=== PATIENT | female | born 1960 | race Caucasian/White ===

== ENCOUNTER 2018-12-20 09:09 | Day surgery (SDC) | payer OTHER, SELFPAY ==
[2018-12-20 09:31] VITALS: BP 131/55; PULSE 84; RESP 18; TEMP 36.8; O2SAT 100; BMI 40.1
--- NOTE | 2018-12-20 10:10 | RAD_ITS ---
PROCEDURE: Caudal block. DATE OF EXAMINATION: December 20, 2018. INDICATION: Female, 58 years old. Chronic low back pain. FLUOROSCOPY TIME (if supplied): (0:09) minutes/seconds. 2 coned-down views were obtained intraoperatively. Intraoperative imaging provided for caudal block. The needle is seen along the posterior midportion of the sacrum. RAD/Fluor Guidance for Spine Inj IMPRESSION: Intraoperative imaging provided for caudal block. Electronically Signed: Mauri Schaffer MD at 11:13 EST , Service support ,
[2018-12-20] MEDS: Bupivacaine 0.25% 30 ML Vial (10:15)
[2018-12-20] MEDS: MethylPREDNISolone Acetate 80 MG/ML Vial (10:15)
[2018-12-20 10:20] VITALS: BP 131/55; BP 132/75; PULSE 88; RESP 16; TEMP 36.2; O2SAT 96
[2018-12-20 10:25] VITALS: BP 131/55; BP 144/88; PULSE 93; RESP 16; O2SAT 94
[2018-12-20 10:30] VITALS: BP 131/55; BP 150/84; PULSE 88; RESP 16; O2SAT 97
[2018-12-20 10:35] VITALS: BP 123/63; BP 131/55; PULSE 84; RESP 16; TEMP 36.4; O2SAT 94
[2018-12-20 10:48] VITALS: BP 131/55
--- NOTE | 2018-12-20 11:23 | OP.PCM_ITS ---
Problem List (1) Degeneration of intervertebral disc of lumbosacral region Status: Chronic (2) Radiculopathy of lumbosacral region Status: Chronic Report of Operation Date of Procedure: 12/20/18 Pre-Operative Diagnosis: Lumbosacral radiculopathy, lumbosacral degenerative disc disease, lumbosacral spinal stenosis Post-Operative Diagnosis: Lumbosacral radiculopathy, lumbosacral degenerative disc disease, lumbosacral spinal stenosis Surgery/Procedure Performed:: Diagnostic/therapeutic caudal epidural steroid injection Description of Surgical Findings:: PROCEDURE: Diagnostic/therapeutic caudal epidural steroid injection PREOPERATIVE DIAGNOSIS: Lumbosacral radiculopathy, lumbosacral degenerative disc disease, lumbosacral spinal stenosis POSTOPERATIVE DIAGNOSIS: Lumbosacral radiculopathy, lumbosacral degenerative disc disease, lumbosacral spinal stenosis ANESTHESIA: MAC COMPLICATIONS: None BLOOD LOSS: Minimal PROCEDURE IN DETAIL: History and physical today was reviewed. Risks and benefits of the procedure were explained. The patient understood, agreed to our procedure, and informed consent was obtained. IV inserted per routine protocol. The patient was taken to the operating room, placed in a prone position with a pillow positioned underneath the abdomen. The lower back and tailbone area was prepped and draped in a sterile fashion using iodine x3 under fluoroscopy guidance on the lateral view the caudal space was identified the skin and subcutaneous tissue anesthetized approximately 3 cc of 1% lidocaine using a 25-gauge regular needle under direct visualization fluoroscopy in a lateral view using a 22-gauge 3-1/2 inch spinal needle the needle was advanced via the skin through the sacral hiatus tip of the needle pas sed through the sacrococcygeal ligament advanced approximately S4 area after negative aspiration for blood or CSF a total of 3 cc of contrast were injected to confirm correct placement of the needle as well as cephalad spread the spread was followed to approximately L5 area after confirmation of AP as well as lateral view and repeated negative aspiration a total of 15 cc of preservative- free 0.125% Marcaine with 80 mg of Depo-Medrol were injected easily. The needles were then removed intact. The patient experienced no signs or symptoms intrathecal, intravascular injection. The patient experienced no paraesthesia. The procedure was completed without any apparent difficult, any complication. The patient appeared to tolerate well. ASSESSMENT AND PLAN: This is a 58-year-old female with lumbosacral radiculopathy lumbosacral degenerative disc disease lumbosacral spinal stenosis status post diagnostic/therapeutic caudal epidural steroid injection patient would continue her current medications the patient will follow in approximately 2 weeks for possible repeat of the procedure if indicated.
== END 2018-12-20 11:09 | disposition home or self-care (01) ==
LOC: SDC 09:10 → AC 09:12
PROVIDERS: Family Provider Internal Medicine; PCP Internal Medicine; Referring Provider Anesthesiology Pain Medicine; Visit Provider Anesthesiology Pain Medicine
PROC: 3E0S3BZ Introduction of Anesthetic Agent into Epidural Space, Percutaneous Approach (ICD-10-PCS; CPT 62282; principal; 2018-12-20 10:05)
DX: M51.17 Intervertebral disc disorders with radiculopathy, lumbosacral region (principal); M48.07 Spinal stenosis, lumbosacral region; M47.817 Spondylosis without myelopathy or radiculopathy, lumbosacral region; M46.96 Unspecified inflammatory spondylopathy, lumbar region; M79.7 Fibromyalgia; J45.909 Unspecified asthma, uncomplicated; G47.33 Obstructive sleep apnea (adult) (pediatric); G25.81 Restless legs syndrome; K21.9 Gastro-esophageal reflux disease without esophagitis; M85.80 Other specified disorders of bone density and structure, unspecified site; M19.90 Unspecified osteoarthritis, unspecified site; Z87.19 Personal history of other diseases of the digestive system; Z86.2 Personal history of diseases of the blood and blood-forming organs and certain disorders involving the immune mechanism; Z78.0 Asymptomatic menopausal state; Z96.612 Presence of left artificial shoulder joint; Z96.611 Presence of right artificial shoulder joint; Z79.52 Long term (current) use of systemic steroids; Z79.891 Long term (current) use of opiate analgesic; Z79.899 Other long term (current) drug therapy
CPT/HCPCS: 01992; 62323; 64483; 77003; J7120; J3490

== ENCOUNTER 2019-01-17 07:31 | Day surgery (SDC) | payer OTHER, SELFPAY ==
[2019-01-17] VITALS (8 sets, daily range): BP systolic 107–150; BP diastolic 65–86; PULSE 76–95; RESP 14–16; TEMP 36.1–36.7; O2SAT 93–99; BMI 40.2
--- NOTE | 2019-01-17 08:17 | RAD_ITS ---
STUDY: X-RAY - LUMBAR SPINE REASON FOR EXAM: Female, 58 years old. Transforaminal block, right. TECHNIQUE: 2 frontal fluoroscopic images of the lumbar spine were obtained intraoperatively by the surgeon. COMPARISON: None FINDINGS: Images depict needle placement confirmed on the left at L4-L5 and L5-S1 with injection of contrast. No significant lumbar spondylosis is apparent. RAD/Lumbar Spine 2 or 3 Views IMPRESSION: Transforaminal block. Correlate with operative report. Electronically Signed: Dillon Feliciano MD at 17:51 EST Tel , Service support ,
[2019-01-17] MEDS: MethylPREDNISolone Acetate 80 MG/ML Vial (08:26)
[2019-01-17] MEDS: Bupivacaine 0.25% 30 ML Vial (08:26)
--- NOTE | 2019-01-17 09:02 | OP.PCM_ITS ---
Problem List (1) Degeneration of intervertebral disc of lumbosacral region Status: Chronic (2) Radiculopathy of lumbosacral region Status: Chronic Report of Operation Date of Procedure: 01/17/19 Pre-Operative Diagnosis: Lumbosacral radiculopathy, lumbosacral degenerative disc disease, lumbosacral spinal stenosis Post-Operative Diagnosis: Lumbosacral radiculopathy, lumbosacral degenerative disc disease, lumbosacral spinal stenosis Surgery/Procedure Performed:: Right sided lumbar transforaminal epidural steroid injection L4-5, L5-S1 Description of Surgical Findings:: PROCEDURE: Right-sided lumbar transforaminal epidural steroid injection L4-5, L5-S1 PREOPERATIVE DIAGNOSIS: Lumbosacral radiculopathy, lumbosacral degenerative disc disease, lumbosacral spinal stenosis POSTOPERATIVE DIAGNOSIS: Lumbosacral radiculopathy, lumbosacral degenerative disc disease, lumbosacral spinal stenosis ANESTHESIA: MAC COMPLICATIONS: None BLOOD LOSS: Minimal PROCEDURE IN DETAIL: History and physical today was reviewed. Risks and benefits of the procedure were explained. The patient understood, agreed to our procedure, and informed consent was obtained. IV inserted per routine protocol. The patient was taken to the operating room, placed in a prone position with a pillow positioned underneath the abdomen. The right side of the lower back was prepped and draped in a sterile fashion using iodine x3 under fluoroscopy guidance oblique view the L4 through S1 vertebral bodies were visualized the skin and subcutaneous tissue and size approximately 5 cc of 1% lidocaine using a 25-gauge regular needle under direct visualization fluoroscopy at approximately 35 degrees angle starting on the right L4 ending on the right L5 using a 22-gauge 5 inch spinal needle the needle was advanced via the skin the tip of the needle was maneuvered and directed towards the inferior and medial gutter of the transverse process at the superiormost aspect of the neuroforamen once the tip of the needle was at the vicinity of the foramen after negative aspiration for blood or CSF a total of 3 cc of contrast were injected in divided doses between both levels to confirm correct placement of the needle as well as medial spread the confirmation was obtained on AP as well as lateral view after repeated negative aspiration and confirmation a total of 6 cc of pr eservative-free 0.25% Marcaine with 80 mg of Depo-Medrol were injected in divided doses between both levels, the needles were then removed intact. The patient experienced no signs or symptoms intrathecal, intravascular injection. The patient experienced no paraesthesia. The procedure was completed without any apparent difficult, any complication. The patient appeared to tolerate well. ASSESSMENT AND PLAN: This is a 58-year-old female with lumbosacral radiculopathy, lumbosacral degenerative disc disease, lumbosacral spinal stenosis status post right-sided lumbar transforaminal epidural steroid injection L4-5, L5-S1. The patient will continue her current medications. The patient will follow in approximately 2 weeks for reevaluation.
== END 2019-01-17 09:46 | disposition home or self-care (01) ==
LOC: SDC 07:32 → AC 07:33
PROVIDERS: Family Provider Internal Medicine; PCP Internal Medicine; Referring Provider Anesthesiology Pain Medicine; Visit Provider Anesthesiology Pain Medicine
PROC: 3E0S3BZ Introduction of Anesthetic Agent into Epidural Space, Percutaneous Approach (ICD-10-PCS; CPT 64483; principal; 2019-01-17 08:25)
DX: M51.17 Intervertebral disc disorders with radiculopathy, lumbosacral region (principal); M48.07 Spinal stenosis, lumbosacral region; K21.9 Gastro-esophageal reflux disease without esophagitis; Z79.899 Other long term (current) drug therapy; J45.909 Unspecified asthma, uncomplicated; G47.33 Obstructive sleep apnea (adult) (pediatric); K44.9 Diaphragmatic hernia without obstruction or gangrene; M19.90 Unspecified osteoarthritis, unspecified site; M79.7 Fibromyalgia; Z79.891 Long term (current) use of opiate analgesic
CPT/HCPCS: 64483; 64484; 72100; J7120

== ENCOUNTER 2019-05-02 07:18 | Day surgery (SDC) | payer OTHER, SELFPAY ==
[2019-01-17 07:55] VITALS: BMI 40.2
[2019-05-02 07:32] VITALS: BP 135/71; PULSE 64; RESP 16; TEMP 36.2; O2SAT 96; BMI 39.6
[2019-05-02] MEDS: Bupivacaine 0.25% 30 ML Vial (08:39)
[2019-05-02] MEDS: MethylPREDNISolone Acetate 80 MG/ML Vial (08:40)
--- NOTE | 2019-05-02 08:40 | RAD_ITS ---
PROCEDURE: Right L4 S1 transforaminal block. DATE OF EXAMINATION: May 02, 2019. INDICATION: Female, 59 years old. Low back pain. FLUOROSCOPY TIME (if supplied): (0:26) minutes/seconds. 3 images were obtained. Intraoperative imaging provided for right L4 S1 transforaminal block. RAD/Lumbar Spine 2 or 3 Views IMPRESSION: Fluoroscopic imaging provided for right L4 S1 transforaminal block. Electronically Signed: Mauri Schaffer, at 11:06 EDT , Service support ,
[2019-05-02 08:50] VITALS: BP 122/96; BP 135/71; PULSE 74; RESP 16; TEMP 36.4; O2SAT 99
[2019-05-02 08:55] VITALS: BP 131/87; BP 135/71; PULSE 72; RESP 16; O2SAT 95
[2019-05-02 09:00] VITALS: BP 135/71; BP 136/81; PULSE 72; RESP 16; O2SAT 95
[2019-05-02 09:05] VITALS: BP 135/71; BP 143/92; PULSE 71; RESP 16; TEMP 36.2; O2SAT 98
[2019-05-02 09:39] VITALS: BP 135/71
--- NOTE | 2019-05-02 12:11 | PCM.OPRPT ---
Problem List (1) Degeneration of intervertebral disc of lumbosacral region Status: Chronic (2) Radiculopathy of lumbosacral region Status: Chronic Report of Operation Date of Procedure: 05/02/19 Pre-Operative Diagnosis: Lumbosacral radiculopathy, lumbosacral degenerative disc disease Post-Operative Diagnosis: Lumbosacral radiculopathy, lumbosacral degenerative disc disease Surgery/Procedure Performed:: Right-sided lumbar transforaminal epidural steroid injection L4-5, L5-S1 Description of Surgical Findings:: PROCEDURE: Right-sided lumbar transforaminal epidural steroid injection L4-5, L5-S1 PREOPERATIVE DIAGNOSIS: Lumbosacral radiculopathy, lumbosacral degenerative disc disease, lumbosacral spinal stenosis POSTOPERATIVE DIAGNOSIS: Lumbosacral radiculopathy, lumbosacral degenerative disc disease, lumbosacral spinal stenosis ANESTHESIA: MAC COMPLICATIONS: None BLOOD LOSS: Minimal PROCEDURE IN DETAIL: History and physical today was reviewed. Risks and benefits of the procedure were explained. The patient understood, agreed to our procedure, and informed consent was obtained. IV inserted per routine protocol. The patient was taken to the operating room, placed in a prone position with a pillow positioned underneath the abdomen. The right side of the lower back was prepped and draped in a sterile fashion using iodine x3 under fluoroscopy guidance oblique view the L4 through S1 vertebral bodies were visualized the skin and subcutaneous tissue and size approximately 5 cc of 1% lidocaine using a 25-gauge regular needle under direct visualization fluoroscopy at approximately 35 degrees angle starting on the right L4 ending on the right L5 using a 22-gauge 5 inch spinal needle the needle was advanced via the skin the tip of the needle was maneuvered and directed towards the inferior and medial gutter of the transverse process at the superiormost aspect of the neuroforamen once the tip of the needle was at the vicinity of the foramen after negative aspiration for blood or CSF a total of 3 cc of contrast were injected in divided doses between both levels to confirm correct placement of the needle as well as medial spread the confirmation was obtained on AP as well as lateral view after repeated negative aspiration and confirmation a total of 6 cc of preservative-free 0.25% Marcaine with 80 mg of Depo-Medrol were injected in divided doses between both levels, the needles were then removed intact. The patient experienced no signs or symptoms intrathecal, intravascular injection. The patient experienced no paraesthesia. The procedure was completed without any apparent difficult, any complication. The patient appeared to tolerate well. ASSESSMENT AND PLAN: This is a 58-year-old female with lumbosacral radiculopathy, lumbosacral degenerative disc disease, lumbosacral spinal stenosis status post right-sided lumbar transforaminal epidural steroid injection L4-5, L5-S1. The patient will continue her current medications. The patient will follow in approximately 2 weeks for reevaluation.
== END 2019-05-02 09:40 | disposition home or self-care (01) ==
LOC: SDC 07:20 → AC 07:21
PROVIDERS: Family Provider Internal Medicine; PCP Internal Medicine; Referring Provider Anesthesiology Pain Medicine; Visit Provider Anesthesiology Pain Medicine
PROC: 3E0S3BZ Introduction of Anesthetic Agent into Epidural Space, Percutaneous Approach (ICD-10-PCS; CPT 64483; principal; 2019-05-02 08:35)
DX: M47.27 Other spondylosis with radiculopathy, lumbosacral region (principal); M51.17 Intervertebral disc disorders with radiculopathy, lumbosacral region; M48.07 Spinal stenosis, lumbosacral region; M46.96 Unspecified inflammatory spondylopathy, lumbar region; M79.7 Fibromyalgia; J45.909 Unspecified asthma, uncomplicated; G47.33 Obstructive sleep apnea (adult) (pediatric); M85.80 Other specified disorders of bone density and structure, unspecified site; M19.90 Unspecified osteoarthritis, unspecified site; K44.9 Diaphragmatic hernia without obstruction or gangrene; K21.9 Gastro-esophageal reflux disease without esophagitis; Z87.19 Personal history of other diseases of the digestive system; Z86.2 Personal history of diseases of the blood and blood-forming organs and certain disorders involving the immune mechanism; Z78.0 Asymptomatic menopausal state; Z79.891 Long term (current) use of opiate analgesic; Z79.899 Other long term (current) drug therapy
CPT/HCPCS: 64483; 64484; 72100; J7120

== ENCOUNTER → 2019-10-27 11:43 | Outpatient (CLI) | payer OTHER, SELFPAY ==
[2019-10-24 15:09] VITALS: BMI 39.6
--- NOTE | 2019-10-27 11:46 | VDLE_ITS ---
Reason For Study: RLE pain RIGHT GSV is normal. CFV is compressible, spontaneous, phasic, competent and demonstrates normal augmentation. FV is compressible, spontaneous, phasic, competent and demonstrates normal augmentation. POP V is compressible, spontaneous, phasic, competent and demonstrates normal augmentation. T/P Trunk is compressible. PTV is compressible. RT PerV is compressible. Procedure Exam performed in department. The exam was diagnostic. A preliminary report was called and/or faxed to Dr. Anderson. Interpretation Summary There is no evidence of right lower extremity deep vein thrombosis. Right great saphenous vein appears patent and compressible segmentally. Ordering Physician: Sebastian Anderson Performed By: Stan Nicholas RVT
== END ==
PROVIDERS: Family Provider Internal Medicine; PCP Internal Medicine; Referring Provider Orthopaedic Surgery Orthopaedic Surgery of the Spine; Visit Provider Orthopaedic Surgery Orthopaedic Surgery of the Spine
DX: M79.661 Pain in right lower leg (principal); Z98.890 Other specified postprocedural states
CPT/HCPCS: 93971

== ENCOUNTER → 2019-10-31 09:24 | Outpatient (CLI) | payer OTHER, SELFPAY ==
[2019-10-24 15:09] VITALS: BMI 39.6
--- NOTE | 2019-10-31 09:41 | BI_ITS ---
MAMMOGRAPHY - UNILATERAL DIAGNOSTIC: LEFT BREAST REASON FOR EXAM: Female, 59 years old. Abnormal screening mammogram. PERTINENT HISTORY: Non-contributory. TECHNIQUE: Compression magnification spot views of the left breast in the mediolateral oblique and craniocaudad views were obtained. CAD: Full Field Digital Mammography with Computer Added Detection was performed. COMPARISON: Comparison is made with prior outside mammogram dated October 19, 2019. FINDINGS: Breast Composition: There are scattered areas of fibroglandular density. There is a persistent 4.6 mm well-defined nodule in the inferior lateral deep portion of the left breast. Correlation with ultrasound is recommended. No other significant abnormalities are identified. BI/DIAG MAMM W/CAD, UNILAT IMPRESSION: Stable appearance of the 4.6 mm well-defined nodule in the inferior lateral deep portion of the left breast as described. Correlation with ultrasound is recommended. ASSESSMENT CATEGORY: BIRADS Category 0: Incomplete. Need additional imaging evaluation. A letter regarding these results will be sent to the patient by the facility within 30 days. Approximately 10% of breast cancers are not detected by mammography. A normal mammogram should not delay biopsy of a clinically suspicious abnormality. Electronically Signed: Mauri Schaffer, at 11:06 EST , Service support ,
--- NOTE | 2019-10-31 09:41 | US_ITS ---
STUDY: ULTRASOUND BREAST - LEFT REASON FOR EXAM: Female, 59 years old. Abnormal screening mammogram. TECHNIQUE: Axial and longitudinal images of the LEFT breast were performed with a high resolution ultrasound transducer. # OF IMAGES: 32 COMPARISON: Comparison is made with prior mammogram dated October 31, 2019. FINDINGS: LEFT Breast: The mammographic abnormality corresponds to a 3 mm x 3 mm x 1 mm cyst at the 4:00 position of the breast at 2 cm from the nipple. There is also evidence of dilated ducts in the lower outer quadrant of the breast. US/Breast Limited Unilateral IMPRESSION: The mammographic abnormality corresponds to a 3 mm x 3 mm x 1 mm cyst at the 4:00 position of the breast at 2 cm from the nipple. ASSESSMENT CATEGORY: BIRADS Category 2: Benign. A letter regarding these results will be sent to the patient by the facility within 30 days. Electronically Signed: Mauri Schaffer, at 15:09 EST , Service support ,
== END ==
PROVIDERS: Family Provider Internal Medicine; PCP Internal Medicine; Referring Provider Obstetrics & Gynecology; Visit Provider Obstetrics & Gynecology
DX: R92.8 Other abnormal and inconclusive findings on diagnostic imaging of breast (principal)
CPT/HCPCS: 76642; 77065

== ENCOUNTER → 2019-11-22 15:18 | Outpatient (CLI) | payer OTHER, SELFPAY ==
[2019-10-24 15:09] VITALS: BMI 39.6
== END ==
PROVIDERS: Family Provider Internal Medicine; PCP Internal Medicine; Referring Provider Otolaryngology Otolaryngology/Facial Plastic Surgery; Visit Provider Otolaryngology Otolaryngology/Facial Plastic Surgery
DX: J32.9 Chronic sinusitis, unspecified (principal)
CPT/HCPCS: 87070; 87077; 87186; 87205

== ENCOUNTER → 2019-12-07 16:25 | Outpatient (CLI) | payer OTHER, SELFPAY ==
[2019-10-24 15:09] VITALS: BMI 39.6
== END ==
PROVIDERS: PCP Internal Medicine; Referring Provider Otolaryngology Otolaryngology/Facial Plastic Surgery; Visit Provider Otolaryngology Otolaryngology/Facial Plastic Surgery
DX: J32.9 Chronic sinusitis, unspecified (principal)
CPT/HCPCS: 87070; 87205

== ENCOUNTER → 2020-05-03 08:59 | Outpatient (CLI) | payer OTHER, SELFPAY ==
[2019-10-24 15:09] VITALS: BMI 39.6
--- NOTE | 2020-05-03 09:01 | US_ITS ---
STUDY: ULTRASOUND BREAST - LEFT REASON FOR EXAM: Female, 60 years old. Abnormal screening mammogram. TECHNIQUE: Axial and longitudinal images of the LEFT breast were performed with a high resolution ultrasound transducer. # OF IMAGES: 42 COMPARISON: Comparison is made with prior mammogram done earlier today as well as prior ultrasound the left breast dated October 31, 2019. FINDINGS: LEFT Breast: The lower outer aspect of the left breast was examined by ultrasound. No sonographic abnormality is seen. Prior ultrasound demonstrated a 3 mm x 3 mm x 1 mm cyst at the 4:00 position of the breast at 2 cm from nipple. US/Breast Limited Unilateral IMPRESSION: No sonographic abnormality is seen at this time. Routine annual mammographic follow-up is recommended. ASSESSMENT CATEGORY: BIRADS Category 2: Benign. A letter regarding these results will be sent to the patient by the facility within 30 days. Electronically Signed: Mauri Schaffer, at 12:30 EDT , Service support ,
--- NOTE | 2020-05-03 09:01 | BI_ITS ---
MAMMOGRAPHY - UNILATERAL DIAGNOSTIC: LEFT BREAST REASON FOR EXAM: Female, 60 years old. Six-month follow-up for left breast nodule. PERTINENT HISTORY: Non-contributory. TECHNIQUE: Digital unilateral breast ivana (3D mammographic acquisition) in the CC and MLO projections. 2-D mediolateral oblique (MLO) and craniocaudad (CC) views of both breasts were obtained. CAD: Full Field Digital Mammography with Computer Added Detection was performed. COMPARISON: Comparison is made with prior mammogram dated October 31, 2019. FINDINGS: Breast Composition: The breasts are almost entirely fatty. There are no dominant masses or suspicious calcifications. Stable 4.3 mm well-defined nodule in the central slightly lateral portion of the left breast. Stable scattered calcifications. No other significant abnormalities are identified. There has been no significant change since the prior study. BI/DIAG MAMM W/CAD, UNILAT IMPRESSION: Stable unilateral diagnostic mammogram. One year follow-up mammogram recommended. (A) ASSESSMENT CATEGORY: BIRADS Category 2: Benign. A letter regarding these results will be sent to the patient by the facility within 30 days. Approximately 10% of breast cancers are not detected by mammography. A normal mammogram should not delay biopsy of a clinically suspicious abnormality. Electronically Signed: Mauri Schaffer, at 10:18 EDT , Service support ,
== END ==
PROVIDERS: Family Provider Internal Medicine; PCP Internal Medicine; Referring Provider Obstetrics & Gynecology; Visit Provider Obstetrics & Gynecology
DX: R92.8 Other abnormal and inconclusive findings on diagnostic imaging of breast (principal)
CPT/HCPCS: 76642; 77061; 77065; G0279

== ENCOUNTER → 2020-05-18 11:52 | Outpatient (CLI) | payer OTHER, SELFPAY ==
[2019-10-24 15:09] VITALS: BMI 39.6
[2020-05-18 12:03] LABS: Hematocrit 43.5 % (37-47); Hemoglobin 14.2 g/dL (12.0-15.0); Mean Corp Hgb Conc 32.6 g/dL (32-36); Mean Corpuscular Hgb 30.1 pg (27.0-32.0); Mean Corpuscular Volume 92.4 fL (81-99); Mean Platelet Vol. 11.5 fl (6.2-12.0); Platelet Count 222 K/mm3 (150-450); RBC Distribution Width CV 13.1 % (11.6-14.6); RBC Distribution Width SD 44.4 fl (35.1-43.9); Red Blood Count 4.71 M/mm3 (4.2-5.4)
[2020-05-18 12:17] LABS: Anion Gap 7 (5-15); BUN 16 mg/dL (7-18); BUN/Creat Ratio 16.1 RATIO (10-20); Calcium,Total 8.4 mg/dL (8.5-10.1); Chloride 108 mmol/L (98-107); Creatinine, Serum 0.99 mg/dL (0.55-1.02); EST Glomerular Filtration Rate 60 mL/min (>60); Est Glom Filt Rate - Afr Amer 73 mL/min (>60); Glucose 136 mg/dL (74-106); Potassium 3.6 mmol/L (3.5-5.1); Sodium Level 140 mmol/L (136-145)
[2020-05-18 12:24] LABS: Hemoglobin A1c 5.7 % (3.8-5.6)
== END ==
PROVIDERS: PCP Internal Medicine; Visit Provider Anesthesiology
DX: Z01.818 Encounter for other preprocedural examination (principal)
CPT/HCPCS: 36415; 80048; 83036; 85027; 93005

== ENCOUNTER 2020-05-21 07:40 | Day surgery (SDC) | payer OTHER, SELFPAY ==
[2019-10-24 15:09] VITALS: BMI 39.6
[2020-05-21] VITALS (9 sets, daily range): BP systolic 113–133; BP diastolic 66–110; PULSE 62–84; RESP 16; TEMP 36.1–36.9; O2SAT 92–99; BMI 36.2
--- NOTE | 2020-05-21 07:50 | EKG12_ITS ---
Test Reason : PRE-OP Blood Pressure : / mmHG Vent. Rate : 058 BPM Atrial Rate : 058 BPM P-R Int : 150 ms QRS Dur : 084 ms QT Int : 420 ms P-R-T Axes : 044 004 036 degrees QTc Int : 412 ms Sinus bradycardia Otherwise normal ECG Confirmed by SIMÓN RUSSO, SILVER ([id number]), non linear editor CARLITOS GOLD ([id number]) on 05/23/2020 10:46:16 AM Referred By: Geremias Purdy Confirmed By:SILVER GR MD
[2020-05-21] MEDS: Lactated Ringers 1,000 ML 100 ML IV (08:23)
[2020-05-21 08:36] LABS: Bedside Glucose 89 mg/dL (70-110)
--- NOTE | 2020-05-21 08:43 | PCM.DC ---
You will use the following diet at home:: Regular Discharge Activity: Return to Normal Activity Additional Activity Instructions:: Avoid the CPAP for 3 nights Allergies/Adverse Reactions: Allergies promethazine [From Phenergan] Allergy (Mild, Verified 05/15/20 14:57) Other chemical sensitivies Allergy (Mild, Uncoded 05/15/20 14:57) Other outdoor allergies Allergy (Mild, Uncoded 05/15/20 14:57) Other Medications to take at Discharge albuterol sulfate 90 mcg/actuation aerosol inhaler 1 puff INHALATION Q6H PRN 07/21/18 esomeprazole magnesium 40 mg capsule,delayed release 40 mg PO DAILY 07/21/18 mometasone-formoterol HFA 200 mcg-5 mcg/actuation aerosol inhaler 2 puff INHALATION BID 07/21/18 montelukast 10 mg tablet 10 mg PO QPM 07/21/18 raloxifene 60 mg tablet 60 mg PO DAILY 07/21/18 metFORMIN (XR) [Glucophage Xr] 1,000 mg PO DAILY 05/02/19 Cholecalciferol (Vitamin D3) [Vitamin D3] 5,000 unit PO DAILY 05/15/20 Magnesium Oxide [Magnesium] 500 mg PO DAILY 05/15/20 Vit C/E/Zinc/Lutein/Zeaxanthin [[employer] Eye Health Gummies] 1 ea PO DAILY 05/15/20 Primary Care Physician: Keyonna Kauffman MD [Primary Care Provider] - Test Results: Test results from this visit will be discussed in further detail at your follow-up appointment, if applicable.
--- NOTE | 2020-05-21 09:00 | PCM.OPRPT ---
Report of Operation Date of Procedure: 05/21/20 Pre-Operative Diagnosis: nasal airway obstruction. vestibular stenosis Post-Operative Diagnosis: same Surgery/Procedure Performed:: bilateral lateral implantation Type of Anesthesia:: Local MAC Anesthesiologist: Russell Bai Estimated Blood Loss (mL): < 2 cc Description of Procedure: The patient was taken to the OR on 05/22/20. She was given local/Mac anesthesia. The nose was prepped and draped steriley. 1 % lidocaine with epinephrine was injected into intended implantation site bilaterally. After anesthesia and vasoconstriction, the Latera implant model was aligned above the external valve and marked with a pen. The Lateral needle was inserted toward the septum and lateral to the lower lateral cartilage using a ball tipped probe for eversion. Next, the needle was placed in the supraperichondrial plane until it was driven to its intended location. The implant was deployed and held externally while the needle was removed. The same procedure was then performed on the left hand side. Visual inspection and palpation reveal perfect position of the implant bilaterally. The patient was brought to the recovery room in stable condition. Blood loss minimal, replacement none. Sponge, needle and instrument count were correct at the end of the procedure.
== END 2020-05-21 10:36 | disposition home or self-care (01) ==
LOC: SDC 07:41 → AC 07:41
PROVIDERS: Anesthesiology; PCP Internal Medicine; Referring Provider Otolaryngology; Visit Provider Otolaryngology
PROC: (CPT 30520; principal; 2020-05-21 08:45)
DX: M95.0 Acquired deformity of nose (principal); J98.8 Other specified respiratory disorders; Z11.59 Encounter for screening for other viral diseases; J45.909 Unspecified asthma, uncomplicated; G47.30 Sleep apnea, unspecified; K21.9 Gastro-esophageal reflux disease without esophagitis; Z79.899 Other long term (current) drug therapy; Z78.0 Asymptomatic menopausal state
CPT/HCPCS: 00160; C9749; 82962; 87635; 93005; J7120; J2405; U0003

== ENCOUNTER → 2020-12-20 12:07 | Outpatient (CLI) | payer OTHER, SELFPAY ==
[2019-10-24 15:09] VITALS: BMI 39.6
[2020-05-21 08:06] VITALS: BMI 36.2
--- NOTE | 2020-12-20 12:10 | BI_ITS ---
MAMMOGRAPHY - BILATERAL SCREENING REASON FOR EXAM: Female, 60 years old. Routine annual screening examination. PERTINENT HISTORY: Non-contributory. TECHNIQUE: Digital bilateral breast royal (3D mammographic acquisition) in the CC and MLO projections. 2-D mediolateral oblique (MLO) and craniocaudad (CC) views of both breasts were obtained. CAD: Full Field Digital Mammography with Computer Added Detection was performed. COMPARISON: Comparison is made with prior outside examination dated 10/19/2019. FINDINGS: Breast Composition: The breasts are almost entirely fatty. There are no dominant masses or suspicious calcifications. Stable benign-appearing bilateral axillary lymph nodes. No other significant abnormalities are identified. There has been no significant change since the prior study. BI/SCRN MAMM (CAD)W/ROYAL BILAT IMPRESSION: Stable bilateral screening mammogram. Yearly follow-up mammogram recommended. (A) ASSESSMENT CATEGORY: BIRADS Category 2: Benign. A letter regarding these results will be sent to the patient by the facility within 30 days. Approximately 10% of breast cancers are not detected by mammography. A normal mammogram should not delay biopsy of a clinically suspicious abnormality. [id number] Electronically Signed: Mauri Schaffer MD at 13:09 EST , Service support ,
[2020-12-24 21:46] LABS: HPV APTIMA, High Risk Negative (Negative)
== END ==
PROVIDERS: PCP Internal Medicine; Referring Provider Nurse Practitioner Women's Health; Visit Provider Nurse Practitioner Women's Health
DX: Z12.31 Encounter for screening mammogram for malignant neoplasm of breast (principal); Z12.4 Encounter for screening for malignant neoplasm of cervix
CPT/HCPCS: 77063; 77067; 87624; 88175; G0145

== ENCOUNTER 2022-01-17 07:23 | Outpatient (CLI) | payer OTHER, SELFPAY ==
--- NOTE | 2022-01-17 07:29 | CT_ITS ---
EXAM: CT ABDOMEN AND PELVIS WITH INTRAVENOUS CONTRAST : 1960 CLINICAL INDICATION: HERNIA TECHNIQUE: Helically acquired images were obtained of the abdomen and pelvis with intravenous contrast. This CT exam was performed using one or more of the following dose reduction techniques: automated exposure control, adjustment of the mA and/or kV according to patient size, and/or use of iterative reconstruction technique. This report was created using [employer] report generation technology. CONTRAST: IV 100mL [id number]-300 COMPARISON: None. FINDINGS: LOWER THORAX: Linear scarring noted at the left lung base. No cardiomegaly. No significant pericardial effusion. ABDOMEN: LIVER: There is mild hepatic steatosis. Small cystic lesions noted within the left hepatic lobe. GALLBLADDER AND BILE DUCTS: Unremarkable. No calcified gallstones. No gallbladder distention or wall edema. No intra- or extrahepatic biliary ductal dilation. PANCREAS: Unremarkable. No focal cystic or solid mass. SPLEEN: Unremarkable. Normal size without focal cystic or solid mass. ADRENALS: Unremarkable. No nodules. KIDNEYS AND URETERS: Unremarkable. Normal renal size and position. No hydronephrosis. STOMACH AND BOWEL: Colon diverticulosis noted without evidence of acute diverticulitis. No stomach or bowel distention. PELVIS: APPENDIX: Appendix is visualised and normal in appearance. BLADDER: Unremarkable. REPRODUCTIVE: Unremarkable as visualized. No mass. ABDOMEN and PELVIS: INTRAPERITONEAL SPACE: Unremarkable. No ascites or other fluid collection. No free air. BONES/JOINTS: Unremarkable. No suspicious lytic or blastic abnormality. SOFT TISSUES: No evidence of abdominal wall hernia. VASCULATURE: Unremarkable. Abdominal aorta is non-dilated. LYMPH NODES: Unremarkable. No enlarged lymph nodes. CT/Abdomen/Pelvis W IV Cont ONLY IMPRESSION: 1. Mild hepatic steatosis. 2. Diverticulosis coli. 3. No evidence of abdominal wall hernia. Individualized dose optimization techniques were used for this CT. at 0952 Reported and signed by: Juan Carlos Cottrell MD Electronically Signed: Juan Carlos Cottrell MD at 9:51 EST Reading Location ID and State: [address] [place] [address] Tel , Service support ,
[2022-01-17 07:45] LABS: CREATININE FINGERSTICK 1.1 mg/dL (0.55-1.02)
== END 2022-01-17 23:59 | disposition home or self-care (01) ==
LOC: CT 07:24
PROVIDERS: PCP Internal Medicine; Referring Provider Internal Medicine; Visit Provider Internal Medicine
DX: K44.9 Diaphragmatic hernia without obstruction or gangrene (principal)
CPT/HCPCS: 74177; Q9967

== ENCOUNTER → 2022-12-25 | Outpatient (CLI) | payer OTHER, SELFPAY ==
--- NOTE | 2022-12-25 10:45 | BI_ITS ---
MAMMOGRAPHY - BILATERAL SCREENING REASON FOR EXAM: Female, 62 years old. Routine annual screening examination. PERTINENT HISTORY: Non-contributory. TECHNIQUE: Digital bilateral breast royal (3D mammographic acquisition) in the CC and MLO projections. 2-D mediolateral oblique (MLO) and craniocaudad (CC) views of both breasts were obtained. CAD: Full Field Digital Mammography with Computer Added Detection was performed. COMPARISON: Comparison is made with prior study to 12/20/2020 and 10/31/2019. FINDINGS: Breast Composition: The breasts are almost entirely fatty. There are no dominant masses or suspicious calcifications. Stable scattered bilateral calcifications. Stable small benign appearing bilateral axillary lymph nodes. No other significant abnormalities are identified. There has been no significant change since the prior study. BI/SCRN MAMM (CAD)W/ROYAL BILAT IMPRESSION: Stable bilateral screening mammogram. Yearly follow-up mammogram recommended. (A) ASSESSMENT CATEGORY: BIRADS Category 2: Benign. A letter regarding these results will be sent to the patient by the facility within 30 days. Approximately 10% of breast cancers are not detected by mammography. A normal mammogram should not delay biopsy of a clinically suspicious abnormality. [id number] Electronically Signed: Mauri Schaffer MD at 12:27 EST ,
== END | disposition home or self-care (01) ==
PROVIDERS: PCP Internal Medicine; Visit Provider Obstetrics & Gynecology
DX: Z12.31 Encounter for screening mammogram for malignant neoplasm of breast (principal)
CPT/HCPCS: 77063; 77067

== ENCOUNTER → 2023-09-11 | Outpatient (CLI) | payer MEDICARE, SELFPAY ==
--- NOTE | 2023-09-11 09:02 | BI_ITS ---
MAMMOGRAPHY - UNILATERAL DIAGNOSTIC: RIGHT BREAST REASON FOR EXAM: Female, 63 years old. One month history of right breast pain. PERTINENT HISTORY: Non-contributory. TECHNIQUE: Digital unilateral breast ivana (3D mammographic acquisition) in the CC and MLO projections. 2-D mediolateral oblique (MLO) and craniocaudad (CC) views of both breasts were obtained. CAD: Full Field Digital Mammography with Computer Added Detection was performed. COMPARISON: Comparison is made with prior study of December 25, 2022 and December 20, 2020. FINDINGS: Breast Composition: The breasts are almost entirely fatty. There are no dominant masses or suspicious calcifications. No other significant abnormalities are identified. There has been no significant change since the prior study. BI/DIAG MAMM W/CAD, UNILAT IMPRESSION: Stable unilateral diagnostic mammogram. One year follow-up mammogram recommended. (A) ASSESSMENT CATEGORY: BIRADS Category 2: Benign. A letter regarding these results will be sent to the patient by the facility within 30 days. Approximately 10% of breast cancers are not detected by mammography. A normal mammogram should not delay biopsy of a clinically suspicious abnormality. Electronically Signed: Mauri Schaffer MD at 10:06 EDT ,
== END | disposition home or self-care (01) ==
LOC: OPBI 09:01
PROVIDERS: PCP Internal Medicine; Referring Provider Nurse Practitioner Women's Health; Visit Provider Nurse Practitioner Women's Health
DX: R92.8 Other abnormal and inconclusive findings on diagnostic imaging of breast (principal); N64.4 Mastodynia
CPT/HCPCS: 77061; 77065; G0279

== ENCOUNTER → 2023-12-23 | Outpatient (CLI) | payer MEDICARE, SELFPAY ==
--- NOTE | 2023-12-23 09:40 | NEURO ---
NCS and/or EMG Patient Report Ordering Doctor: Shira Pro DATE OF SERVICE: 12/23/23 Hedy presents for electrodiagnostic testing of the left upper limb. She reports numbness and tingling in the fourth and fifth digits of the left hand. Electrodiagnostic findings: Left median motor nerve demonstrates normal distal latency and amplitude with normal conduction velocity. Left ulnar motor responses within normal limits, including conduction across the elbow. Normal left ulnar and radial sensory responses. Borderline prolonged left median sensory latency. Normal left median palmar response. Needle EMG testing was performed in the left upper limb. All muscles tested, including the left cervical paraspinals, showed no evidence of denervation with normal motor unit action potentials. Electrodiagnostic impression: This is a normal electrodiagnostic study of the left upper limb. There is no electrodiagnostic evidence for peripheral neuropathy, including carpal tunnel or cubital tunnel syndrome. There is no electrodiagnostic evidence for cervical radiculopathy. Multi Select Codes Neurology Neurology Interp Codes: 97413-75 Musc test done w/n test comp (interp) and 02954-06 Nrv cndj test 7-8 studies (interp)
== END | disposition home or self-care (01) ==
LOC: PSN 08:30
PROVIDERS: PCP Internal Medicine; Referring Provider Physician Assistant Surgical; Visit Provider Physician Assistant Surgical
DX: R20.2 Paresthesia of skin (principal)
CPT/HCPCS: 95886; 95910

== ENCOUNTER → 2023-12-31 | Outpatient (CLI) | payer MEDICARE, SELFPAY ==
--- NOTE | 2023-12-31 10:46 | BI_ITS ---
MAMMOGRAPHY - BILATERAL SCREENING REASON FOR EXAM: Female, 63 years old. Routine annual screening examination. PERTINENT HISTORY: Non-contributory. TECHNIQUE: Digital bilateral breast royal (3D mammographic acquisition) in the CC and MLO projections. 2-D mediolateral oblique (MLO) and craniocaudad (CC) views of both breasts were obtained. CAD: Full Field Digital Mammography with Computer Added Detection was performed. COMPARISON: Comparison is made with prior study dated December 25, 2022 September 11, 2023. FINDINGS: Breast Composition: The breasts are almost entirely fatty. There are no dominant masses or suspicious calcifications. Stable scattered bilateral calcifications. Small benign appearing bilateral axillary lymph nodes. No other significant abnormalities are identified. There has been no significant change since the prior study. BI/SCRN MAMM (CAD)W/ROYAL BILAT IMPRESSION: Stable bilateral screening mammogram. Yearly follow-up mammogram recommended. (A) ASSESSMENT CATEGORY: BIRADS Category 2: Benign. A letter regarding these results will be sent to the patient by the facility within 30 days. Approximately 10% of breast cancers are not detected by mammography. A normal mammogram should not delay biopsy of a clinically suspicious abnormality. [id number] Electronically Signed: Mauri Schaffer MD at 12:11 EST ,
== END | disposition home or self-care (01) ==
LOC: OPBI 10:46
PROVIDERS: PCP Internal Medicine; Referring Provider Obstetrics & Gynecology; Visit Provider Obstetrics & Gynecology
DX: Z12.31 Encounter for screening mammogram for malignant neoplasm of breast (principal)
CPT/HCPCS: 77063; 77067

== ENCOUNTER → 2025-01-02 | Outpatient (CLI) | payer MEDICARE, SELFPAY ==
--- NOTE | 2025-01-02 14:02 | BI_ITS ---
PROCEDURE: SCRN MAMM (CAD)W/ROYAL BILAT REASON FOR EXAM: F, Age 64 y/o , no family history. Routine follow-up. TECHNIQUE: Bilateral screening digital breast tomosynthesis with 2D and 3D images. Computer aided detection. COMPARISON: Prior exam(s) dating back to December 31, 2023.. FINDINGS: There are scattered areas of fibroglandular density. Stable bilateral secretory calcifications. Stable small benign-appearing axillary lymph nodes. No suspicious masses, areas of developing architectural distortion, or suspicious calcifications. BI/SCRN MAMM (CAD)W/ROYAL BILAT IMPRESSION: BI-RADS 2: BENIGN. RECOMMEND ANNUAL MAMMOGRAPHIC SCREENING. Follow-up code: Routine Follow-up The patient will be notified of the results by letter. Reading Location: [id number]
== END | disposition home or self-care (01) ==
LOC: OPBI 14:02
PROVIDERS: PCP Internal Medicine; Referring Provider Obstetrics & Gynecology; Visit Provider Obstetrics & Gynecology
DX: Z12.31 Encounter for screening mammogram for malignant neoplasm of breast (principal)
CPT/HCPCS: 77063; 77067